=== PATIENT | female | born 1990 | race Caucasian/White ===

== ENCOUNTER → 2020-11-14 | Outpatient (CLI) | payer OTHER ==
[2020-11-14 11:57] LABS: ABSOLUTE NEUTROPHILS 2.6 thou/uL (1.4-8.2); BASOPHILS 0.5 % (0.0-2.0); EOSINOPHILS 0.6 % (0.0-3.0); HEMOGLOBIN 13.1 gm/dL (12.0-15.0); LYMPHOCYTES 30.2 % (24.0-44.0); MCHC 33.6 g/dL (28.0-37.0); MCV 92.2 fL (80.0-100.0); MONOCYTES 6.3 % (1.0-8.0); PLATELET COUNT 241 thou/uL (150-400); POLYS 62.4 % (36.0-66.0); RBC 4.23 mil/uL (4.20-5.00); RDW 14.1 % (10.5-14.5); WBC 4.1 thou/uL (4.0-11.0)
[2020-11-14 12:21] LABS: ALBUMIN 4.5 g/dL (3.4-5.0); CALCIUM 9.6 mg/dL (8.5-10.1); CREATININE 0.8 mg/dL (0.6-1.0); TOTAL BILIRUBIN 0.6 mg/dL (0.2-1.0); TOTAL PROTEIN 7.5 g/dL (6.4-8.2)
== END ==
LOC: LAB 10:48
PROVIDERS: ATTEND Nurse Practitioner
DX: Z00.00 Encounter for general adult medical examination without abnormal findings (principal)

== ENCOUNTER → 2021-01-14 | Outpatient (CLI) | payer OTHER ==
[2021-01-15 00:06] LABS: LUTEINIZING HORMONE (LH) 3.2 mIU/mL (()); TESTOSTERONE* 4 ng/dL (13-71)
[2021-01-15 16:07] LABS: INSULIN 4.2 uIU/mL (2.6-24.9)
[2021-01-17 01:06] LABS: FREE TESTOSTERONE 2.4 pg/mL (0.0-4.2)
== END ==
LOC: LAB 07:25
PROVIDERS: ATTEND Obstetrics & Gynecology
DX: Z01.419 Encounter for gynecological examination (general) (routine) without abnormal findings (principal)